=== PATIENT | female | born 1995 | race Caucasian/White ===

== ENCOUNTER 2019-10-13 13:22 | Emergency (ER) | payer OTHER ==
[~2019-10-13] VITALS: Ht 167.6 cm; Wt 136.1 kg
[2019-10-13] MEDS ORDERED: SPRINTEC 28 DA1 EACH PO (13:39)
[2019-10-13] MEDS ORDERED: MEDROXYPROGESTE10 MG PO (13:40)
== END 2019-10-13 20:06 | disposition home or self-care (01) ==
LOC: ER 13:22
DX: N92.1 Excessive and frequent menstruation with irregular cycle (principal)